=== PATIENT | female | born 1980 | race Caucasian/White ===

== ENCOUNTER 2023-12-19 20:56 | Emergency (ER) | payer OTHER, MEDICARE, SELFPAY ==
[2023-12-19 21:22] VITALS: BP 132/84; PULSE 99; RESP 20; TEMP 37.9; O2SAT 98; BMI 33.3
--- NOTE | 2023-12-19 21:42 | CT_ITS ---
Patient: LANETTE ROJO Facility:?[facility] Patient ID:?[id number] Site Patient ID:?[id number]. Site :?[id number] Study:?CT-Abdomen/Pelvis w/ 95cc [id number]/2024 10:24:25 PM Ordering Physician:Ankur Hogan Final Report: Indication: Right lower quadrant pain, fever Technique: CT through the abdomen and pelvis following 95 mL Isovue 370 IV contrast Comparison: None Findings: Lower chest: No acute abnormality appreciated. Hepatobiliary: No significant parenchymal abnormality is appreciated. Status post cholecystectomy. Spleen: Unremarkable. Pancreas: No acute abnormality appreciated. Adrenal glands: No acute abnormality appreciated. Kidneys: Right perinephric stranding, delayed nephrogram, mild enlargement of the kidney comment focal hypoenhancement of the midpole. No hydronephrosis. No visualized stones. Bowel: No obstruction. No focal perienteric or pericolonic stranding is appreciated. The appendix is visualized and appears unremarkable. Vascular: No acute abnormality appreciated. Lymph nodes: No gross lymphadenopathy. Peritoneum: No free air. No free fluid. : No acute abnormality appreciated. Soft tissues: No acute abnormality appreciated. Bones: No acute fracture. No lytic or blastic lesion. Impression: Findings are suspicious for right-sided pyelonephritis. Please note that all CT scans at this facility use dose modulation, iterative reconstruction, and/or weight-based dosing when appropriate to reduce radiation dose to as low as reasonably achievable. Dictated by Hector Rahman MD @ 12/19/2023 10:28:18 PM Signed by:?Hector Rahman MD @12/19/2023 10:28:18 PM (Electronic Signature)
[2023-12-19 22:00] LABS: Basophils Percent Auto 0.1 % (0.0-3.0); Eosinophils Percent Auto 1.4 % (0.0-7.0); Hematocrit 40.4 % (33.0-51.0); Hemoglobin* 13.3 gm/dL (12.0-16.0); Immature Granulocytes Pct Auto 0.3 %; Lymphocytes Percent Auto 22.4 % (20-44); Mean Corpuscular HGB Conc 33 gm/dL (32-36); Mean Corpuscular Hemoglobin 29 pg (26-34); Mean Corpuscular Volume 89 fL (80-100); Monocytes Percent Auto 8.4 % (0.0-11.0); Neutrophils Percent Auto 67.4 % (42.0-72.0); Platelet Count* 291 K/uL (140-440); RDW Coefficient of Variation % 13.1 % (11.5-15.5); Red Blood Count 4.53 m/uL (4.00-5.20); White Blood Count* 11.76 K/uL (4.50-11.00)
[2023-12-19 22:05] VITALS: TEMP 37.9
[2023-12-19 22:05] LABS: Slide Review Reflex No
[2023-12-19] MEDS: KETOROLAC 15 MG/ML inj IVP (22:05)
[2023-12-19 22:24] LABS: Albumin* 4.3 g/dL (3.3-5.0); Chloride* 107 mmol/L (96-114)
[2023-12-19 22:25] LABS: Potassium* 4.1 mmol/L (3.6-5.1); Sodium* 136 mmol/L (135-149)
[2023-12-19 22:25] LABS: Appearance Urine Clear (Clear); Bilirubin Urine Negative (Negative); Blood Urine Negative (Negative); Color Urine Yellow (Yellow); Glucose Urine Negative (Negative); Ketones Urine Negative (Negative)
[2023-12-19 22:26] LABS: Bacteria Urine Moderate; Leukocyte Esterase Urine Negative (Negative); Nitrite Urine Negative (Negative); Protein Urine Negative (Negative); RBC Urine 0-2 (0-2); Urobilinogen Urine 0.2 (0.2-1.0)
[2023-12-19 22:27] LABS: Creatinine* 0.6 mg/dL (0.5-1.5); Est. Creatinine Clearance* 106.55; Estimated Glomerular Filt Rate 116 ml/min
[2023-12-19 22:28] LABS: Alanine Aminotransferase* 69 U/L (4-35); Alkaline Phosphatase* 56 U/L (40-150); Anion Gap 5 mEq/L (7-15); Aspartate Amino Transferase* 55 U/L (12-35); Bilirubin Direct* 0.2 mg/dL (0.0-0.5); Bilirubin Total* 0.2 mg/dL (0.1-1.5); Blood Urea Nitrogen* 13 mg/dL (5-24); Calcium* 9.1 mg/dL (8.4-10.6); Carbon Dioxide* 24 mmol/L (20-32); Glucose* 95 mg/dL (60-115); Lipase* 70 U/L (23-300); Total Protein* 7.3 g/dL (6.0-8.3)
[2023-12-19 22:31] LABS: C Reactive Protein* 1.8 mg/dL (0.5-1.0)
--- NOTE | 2023-12-19 22:34 | ED_ITS ---
HPI - General Adult General Date Seen: 12/19/23 Chief complaint: Abdominal Pain Stated complaint: pain in abdomen Time Seen by Provider: 12/19/23 21:35 Source: patient Mode of arrival: ambulatory Limitations: no limitations History of Present Illness HPI narrative: Patient is a 43-year-old woman with a history of cholecystectomy, otherwise says her general health is good. She has been having some right mid lateral abdominal/flank pain she says on and off for about a month. The past several days it has been more constant. She has times where it is more achy and other times where she feels like there is a sharp stabbing pain which is reminiscent of when she had gallstones. She has not had nausea vomiting. Appetite has been normal. She is worried about possible appendicitis. She has no history of ovarian cyst or other pathology, denies pelvic pain. She has not had any hematuria or dysuria. Does have a fever here, has not noted fever at home. Denies respiratory symptoms, shortness of breath, cough. She has a Nexplanon, gets periods which are generally pretty light, no suspicion of . She does not smoke, denies significant alcohol use. Does not go to the doctor much. Related Data Home Medications Medication Instructions Recorded Confirmed gabapentin PRN 12/19/23 Allergies Allergy/AdvReac Type Severity Reaction Status Date / Time morphine Allergy Mild NV Verified 12/19/23 21:31 Penicillins Allergy Mild rash Verified 12/19/23 21:31 tobramycin Allergy Mild hives Verified 12/19/23 21:31 Review of Systems Status of ROS: Reports: 6 or more systems reviewed and unremarkable except as noted in History and below [facility] Medical History Ganglion cyst ?M67.40 - Ganglion, unspecified site (ICD-10) Surgical History History of wisdom tooth extraction ?K08.409 - Partial loss of teeth, unspecified cause, unspecified class (ICD- 10) History of laparoscopic cholecystectomy ?Z90.49 - Acquired absence of other specified parts of digestive tract (ICD- 10) History of section ?Z98.891 - History of uterine scar from previous surgery (ICD-10) History of breast biopsy ?Z98.890 - Other specified postprocedural states (ICD-10) Social History Smoking Status: Never smoker Second hand tobacco smoke exposure: No How often do you have a drink containing alcohol: never AUDIT-C Alcohol total score: 0 Non-prescribed substance use: denies use Exam Narrative: Exam Narrative: Vital signs as noted above. In general, an alert, well-appearing patient. Head: Normocephalic, atraumatic. Eyes: Pupils are equal reactive. Extraocular movements are full. Conjunctivae are normal. ENT: Mucous membranes are moist. Throat is normal. Neck: Supple without lymphadenopathy. Heart: Regular rate and rhythm. No murmur or rub. Lungs: Clear bilaterally. No increased work of breathing, crackles or wheezes. Abdomen: Soft and nondistended. She has a little right mid abdominal tenderness, not really in McBurney's point. Negative Maynard's. Positive CVA tenderness on the right. No rebound guarding rigidity in the abdomen. Extremities: Well perfused. No edema. No calf tenderness. Pulses intact. Neurologic: Patient is alert and oriented to person and place. Speech is fluent. Face is symmetric. Moves all extremities equally. Affect: Normal. Skin: Warm and dry. Well perfused. Const: Vital Signs, click to edit/add: Vital Signs - 24 hr 12/19/23 21:22 12/19/23 22:05 Temperature 100.2 F H 100.2 F H Pulse Rate [Pulse Oximeter] 99 Respiratory Rate 20 Blood Pressure [Ri ght Upper Arm] 132/84 Pulse Oximetry 98 Oxygen Delivery Me thod Room Air Documenting provider has reviewed patient's vital signs: yes Course Course ED Course: Patient is a generally healthy 43-year-old who presents with what she describes as intermittent pain in her right abdomen and flank for about a month, but more persistent over the past few days. Low-grade fever here. I ordered some blood work, white count was mildly elevated at 12,000 thousand, no significant left shift. Hemoglobin normal. Metabolic panel normal, lactate 1, LFTs notable for mild elevations in her transaminases a 55 and 69. Bilirubin and alk-phos are normal. CRP mildly elevated at 1.8 and ultimately did elect to go on to CT scan of the abdomen to evaluate for possible appendicitis, pyelonephritis, pancreatitis, diverticulitis, or other acute process. Lipase was ultimately normal at 70. Final radiology read as follows:Findings: Lower chest: No acute abnormality appreciated. Hepatobiliary: No significant parenchymal abnormality is appreciated. Status post cholecystectomy. Spleen: Unremarkable. Pancreas: No acute abnormality appreciated. Adrenal glands: No acute abnormality appreciated. Kidneys: Right perinephric stranding, delayed nephrogram, mild enlargement of the kidney comment focal hypoenhancement of the midpole. No hydronephrosis. No visualized stones. Bowel: No obstruction. No focal perienteric or pericolonic stranding is appreciated. The appendix is visualized and appears unremarkable. Vascular: No acute abnormality appreciated. Lymph nodes: No gross lymphadenopathy. Peritoneum: No free air. No free fluid. : No acute abnormality appreciated. Soft tissues: No acute abnormality appreciated. Bones: No acute fracture. No lytic or blastic lesion. Impression: Findings are suspicious for right-sided pyelonephritis. Urinalysis was not markedly abnormal, 0-2 red cells and 2-5 white cells, moderate bacteria with no squamous cells. Given CT findings and CVA tenderness as well as low-grade fever however I do think it is reasonable to give her a dose of IV Rocephin here, will send her home on Keflex pending urine culture results. She is nontoxic in appearance, I do not see markers suggesting need for admission. Vital Signs Vital signs: Initial Vital Signs Temperature 100.2 F H 12/19/23 21:22 Temperature Source Temporal Artery Scan 12/19/23 21:22 Pulse Rate 99 12/19/23 21:22 Respiratory Rate 20 12/19/23 21:22 Blood Pressure 132/84 12/19/23 21:22 Blood Pressure Mean 100 12/19/23 21:22 Blood Pressure Position Sitting 12/19/23 21:22 Pulse Oximetry 98 12/19/23 21:22 Oxygen Delivery Method Room Air 12/19/23 21:22 Vital Signs Temperature 100.2 F H 12/19/23 21:22 Pulse Rate 99 12/19/23 21:22 Respiratory Rate 20 12/19/23 21:22 Blood Pressure 132/84 12/19/23 21:22 Pulse Oximetry 98 12/19/23 21:22 Oxygen Delivery Method Room Air 12/19/23 21:22 Temperature 100.2 F H 12/19/23 22:05 Pulse Rate 99 12/19/23 21:22 Respiratory Rate 20 12/19/23 21:22 Blood Pressure 132/84 12/19/23 21:22 Pulse Oximetry 98 12/19/23 21:22 Oxygen Delivery Method Room Air 12/19/23 21:22 Medications Administered Medications: Generic Name Dose Route Start Last Admin Trade Name Freq PRN Reason Stop Dose Admin Ceftriaxone Sodium 1 gm/ 100 mls @ 200 mls/hr 12/19/23 22:40 12/19/23 22:48 Sodium Chloride IVPB 12/19/23 22:41 200 mls/hr ONCE ONE Administration Discontinued Medications Generic Name Dose Route Start Last Admin Trade Name Freq PRN Reason Stop Dose Admin Ketorolac Tromethamine 15 mg 12/19/23 21:42 12/19/23 22:05 Ketorolac 15 Mg/Ml Inj IVP 12/19/23 21:43 15 mg ONCE ONE Administration Medical Decision Making Lab Data Labs: Lab Results 12/19/23 12/19/23 12/19/23 Range/Units 21:35 21:50 22:11 WBC 11.76 H (4.50-11.00) K/uL RBC 4.53 (4.00-5.20) m/uL Hgb 13.3 (12.0-16.0) gm/dL Hct 40.4 (33.0-51.0) % MCV 89 (80-100) fL MCH 29 (26-34) pg MCHC 33 (32-36) gm/dL RDW Coeff of Desiree 13.1 (11.5-15.5) % Plt Count 291 (140-440) K/uL Neut % (Auto) 67.4 (42.0-72.0) % Lymph % (Auto) 22.4 (20-44) % Caldwell % (Auto) 8.4 (0.0-11.0) % Eos % (Auto) 1.4 (0.0-7.0) % Baso % (Auto) 0.1 (0.0-3.0) % Neut # (Auto) 7.90 H (1.7-7.0) K/uL Lymph # (Auto) 2.60 (0.90-2.90) K/uL Caldwell # (Auto) 1.00 H (0.00-0.90) K/UL Eos # (Auto) 0.20 (0.00-0.50) K/uL Baso # (Auto) 0.00 (0.00-0.30) K/uL Abs Immat Gran (auto) 0.00 (0.00-0.30) K/uL Imm/Tot Granulo (auto) 0.3 % Sodium 136 (135-149) mmol/L Potassium 4.1 (3.6-5.1) mmol/L Chloride 107 (96-114) mmol/L Carbon Dioxide 24 (20-32) mmol/L Anion Gap 5 L (7-15) mEq/L BUN 13 (5-24) mg/dL Creatinine 0.6 (0.5-1.5) mg/dL Estimated Creat Clear 106.55 Estimated GFR 116 ml/min Glucose 95 (60-115) mg/dL Lactate 1.0 (0.5-1.9) mmol/L Calcium 9.1 (8.4-10.6) mg/dL Total Bilirubin 0.2 (0.1-1.5) mg/dL Direct Bilirubin 0.2 (0.0-0.5) mg/dL AST 55 H (12-35) U/L ALT 69 H (4-35) U/L Alkaline Phosphatase 56 (40-150) U/L C-Reactive Protein 1.8 H (0.5-1.0) mg/dL Total Protein 7.3 (6.0-8.3) g/dL Albumin 4.3 (3.3-5.0) g/dL Lipase 70 (23-300) U/L HCG, Qual Negative (Negative) Urine Color Cancelled Yellow Urine Appearance Cancelled Clear Urine pH Cancelled 7.0 Ur Specific [place] Cancelled 1.020 Urine Protein Cancelled Negative Urine Glucose (UA) Cancelled Negative Urine Ketones Cancelled Negative Urine Blood Cancelled Negative Urine Nitrite Cancelled Negative Urine Bilirubin Cancelled Negative Urine Urobilinogen Cancelled 0.2 Ur Leukocyte Esterase Cancelled Negative Urine RBC 0-2 (0-2) Urine WBC 2-5 (0-5) Ur Squamous Epith Cells None (None-Few) Urine Bacteria Moderate A (None) Discharge Plan Discharge Clinical Impression: Pyelonephritis of right kidney Patient Disposition: Home, Self-Care Condition: Stable Instructions: Kidney Infection (ED) Additional Instructions: Antibiotic as prescribed. Return any time for high fevers, shaking chills, vomiting, severe uncontrolled pain. See primary care if not feeling improved over the next several Prescriptions: No Action gabapentin PRN Patient Comments: unsure of the dose Follow Up/Referrals: Provider,Not a Local [Primary Care Provider] - Stand Alone Forms: [employer] Info Instructions
[2023-12-19 22:39] LABS: HCG Qualitative Serum* Negative (Negative)
[2023-12-19] MEDS: cefTRIAXone 1 GM in 0.9 % SODIUM CHLORIDE Mini-bag 100 ML IVPB (22:48)
[2023-12-19 23:28] VITALS: TEMP 37.9
[2023-12-19 23:29] VITALS: BP 124/74; PULSE 85; RESP 20; TEMP 37.3; O2SAT 98
[2023-12-19 23:31] VITALS: BP 124/74; PULSE 85; RESP 20; TEMP 37.3
== END 2023-12-19 23:31 | disposition home or self-care (01) ==
PROVIDERS: Emergency Provider Emergency Medicine
DX: N10 Acute pyelonephritis (principal)
CPT/HCPCS: 36415; 74177; 80048; 80076; 81001; 81003; 83605; 83690; 84703; 85025; 86140; 87086; 87186; 96365; 96375; 99284; J0696; J1885; Q9967

== ENCOUNTER 2025-04-27 22:02 | Emergency (ER) | payer MEDICAID, SELFPAY ==
[2025-04-27 22:11] VITALS: BP 122/82; PULSE 114; RESP 20; TEMP 36.2; O2SAT 100
[2025-04-27 22:45] LABS: Ur HCG Qualitative* Negative (Negative)
--- NOTE | 2025-04-27 23:02 | ED.GENADULT ---
HPI - General Adult General Date Seen: 04/27/25 Chief complaint: Extremity Pain/Injury, Upper Stated complaint: fall, r arm, left knee pain Time Seen by Provider: 04/27/25 22:51 History of Present Illness HPI narrative: 45 yo F presenting to the ER today for evaluation of injuries after a fall. She slipped on her wet kitchen floor at about 5:00 p.m. this evening. She injured her left knee and her right elbow. She did not hit her head. No loss of consciousness. She also happens to be 4 days late from her predicted menstrual cycle and wants a test. Because of pain she did take cyclobenzaprine and alcoholic drink prior to arrival. Past surgical history includes cholecystectomy, section. She was diagnosed with pyelonephritis in December 2023. She was not doing dishes in her kitchen this evening. She was barefoot and working on the laminate floor. She had inadvertently got on the floor white and then slipped on the wet floor and landed. It sounds like she did scrape her left knee but did not have any significant injury there. She has been able to flex and extend her knee without difficulty and has been walking on it without too much pain. Her primary injuries that she landed directly on her right elbow and she has been having pain on the right elbow ever since the fall. She has not been able to fully extend her elbow because of pain nor she been able to fully flex. The pain is more on the medial aspect of the elbow than lateral. No pain more proximally in the humerus or shoulder. No pain distally in the forearm, wrist, or hand. No numbness or tingling in her hand. She did not hit her head. No neck pain. No chest or back injury. Her right elbow is hurting lot at home so she did have 1 alcoholic beverage and took 1 Flexeril to dull the pain. She says she does not normally drink alcohol. Related Data Home Medications ?Medication ?Instructions ?Recorded ?Confirmed gabapentin 600 mg PO BID PRN 12/19/23 04/27/25 gabapentin 600 mg tablet 600 mg PO BID PRN pain 04/27/25 04/27/25 Previous Rx's ?Medication ?Instructions ?Recorded oxycodone 5 mg tablet 5 mg PO Q6H PRN pain #10 tabs 04/28/25 Allergies Allergy/AdvReac Type Severity Reaction Status Date / Time amoxicillin Allergy Intermediate Rash Verified 04/24/24 12:43 morphine Allergy Mild NV Verified 12/19/23 21:31 Penicillins Allergy Mild rash Verified 12/19/23 21:31 tobramycin Allergy Mild hives Verified 12/19/23 21:31 [facility] Medical History Ganglion cyst ?M67.40 - Ganglion, unspecified site (ICD-10) Surgical History History of wisdom tooth extraction ?K08.409 - Partial loss of teeth, unspecified cause, unspecified class (ICD-10) History of laparoscopic cholecystectomy ?Z90.49 - Acquired absence of other specified parts of digestive tract (ICD-10) History of section ?Z98.891 - History of uterine scar from previous surgery (ICD-10) History of breast biopsy ?Z98.890 - Other specified postprocedural states (ICD-10) Social History Smoking Status: Never smoker Second hand tobacco smoke exposure: No How often do you have a drink containing alcohol: never AUDIT-C Alcohol total score: 0 Non-prescribed substance use: denies use Exam Narrative: Exam Narrative: Constitutional: Appears well-developed and well-nourished. Alert. Conversant. Non toxic. HENT: Head: Atraumatic. No depressed skull fracture, Raccoon Eyes, Diane's sign. Face normal Nose: Nose normal. Mouth/Throat: Oral mucosa is clear and moist. no trismus. Pharynx normal. Tonsils symmetric. No tonsillar enlargement, erythema, or exudate. Eyes: Conjunctivae normal. EOM normal. Pupils equal, round, and reactive to light. No scleral icterus. Neck: Normal range of motion. Neck supple. No tracheal deviation present. Cardiovascular: Normal rate, regular rhythm. No gallop. No friction rub. No murmur heard. Symmetric radial artery pulses Pulmonary/Chest: Effort normal. No stridor. No respiratory distress. No wheezes. No rales. No rhonchi . No ribcage tenderness. Abdominal: Soft. No distension. No mass. No tenderness. No rebound. No guarding. Musculoskeletal: RUE: Clavicle is nontender. Proximal humerus and shoulder nontender. Humeral shaft nontender. Biceps and triceps nontender. Elbow coma normal inspection. Range of motion is limited from about 45 past 90? of flexion and she is able to extend until about 45 past 90? of extension. She is able to pronate and supinate her forearm without pain. She is tender over the medial epicondyle and the very distal end of the humerus. She is not tender over the lateral epicondyle. No tenderness over the olecranon. Radial head nontender. Forearm, radius, ulna shaft are nontender. Wrist and distal radius/are nontender. Normal flexion and extension of the wrist. Thumb, hand, fingers are nontender. Intact median, radial, ulnar nerve sensory function. Normal distal cap refill. LUE: Normal range of motion. No tenderness. No deformity RLE: Normal range of motion. No edema. No tenderness. No deformity LLE: Normal range of motion. No edema. No deformity superficial abrasion on left anterior knee but full flexion extension. Normal weight-bearing. Patient does not think her knee is broken. Neurological: Alert and oriented to person, place, and time. Normal strength. CN II-VII intact. No sensory deficit. GCS eye subscore is 4. GCS verbal subscore is 5. GCS motor subscore is 6. Normal coordination Skin: Skin is warm and dry. No rash noted. No pallor. Normal capillary refill. Psychiatric: Normal mood. Normal affect. Const: Vital Signs, click to edit/add: Vital Signs - 24 hr 04/27/25 22:11 04/28/25 01:00 04/28/25 01:01 Temperature 97.2 F L 98.0 F Pulse Rate [Left P ulse Oximeter] 114 H 99 Respiratory Rate 20 20 Blood Pressure [Le ft Upper Arm] 122/82 124/78 Pulse Oximetry 100 100 100 Oxygen Delivery Me thod Room Air Room Air Course Vital Signs Vital signs: Initial Vital Signs Temperature 97.2 F L 04/27/25 22:11 Temperature Source Temporal Artery Scan 04/27/25 22:11 Pulse Rate 114 H 04/27/25 22:11 Pulse Rhythm Regular 04/27/25 22:11 Respiratory Rate 20 04/27/25 22:11 Blood Pressure 122/82 04/27/25 22:11 Blood Pressure Mean 95 07/23/25 22:11 Blood Pressure Position Sitting 04/27/25 22:11 Pulse Oximetry 100 04/27/25 22:11 Oxygen Delivery Method Room Air 04/27/25 22:11 Vital Signs Temperature 97.2 F L 04/27/25 22:11 Pulse Rate 114 H 04/27/25 22:11 Respiratory Rate 20 04/27/25 22:11 Blood Pressure 122/82 04/27/25 22:11 Pulse Oximetry 100 04/27/25 22:11 Oxygen Delivery Method Room Air 04/27/25 22:11 Temperature 98.0 F 04/28/25 01:01 Pulse Rate 99 04/28/25 01:01 Respiratory Rate 20 04/28/25 01:01 Blood Pressure 124/78 04/28/25 01:01 Pulse Oximetry 100 04/28/25 01:01 Oxygen Delivery Method Room Air 04/28/25 01:01 Medications Administered Medications: Discontinued Medications Generic Name Dose Route Start Last Admin Trade Name Freq PRN Reason Stop Dose Admin Oxycodone HCl 5 mg 04/27/25 23:09 04/27/25 23:31 Oxycodone 5 Mg Tablet PO 04/27/25 23:10 5 mg ONCE ONE Administration Medical Decision Making MDM Narrative Medical decision making narrative: Pleasant 45-year-old female presenting to the ER today with concerns for injuries after she had a mechanical slip and fall on her wet kitchen floor this evening. She did scrape her left knee but does not really feel that 6 and significant injury. Her main site of injury is in her right elbow. X-rays do show evidence for an effusion and potentially a proximal ulnar fracture, per radiology but I do not see it. Possibly a nondisplaced fracture. Will place into a sling. Recommend close outpatient orthopedic follow-up within 3-5 days. She did not hit her head injured her neck. She is not having any chest or back pain. No abdominal pain. No evidence for hip or pelvic injury. Incidentally she is 4 days late for her menstrual cycle and request a test. test is negative. Lab Data Labs: Lab Results 04/27/25 Range/Units 22:40 Urine HCG, Qual Negative (Negative) Imaging Data XR R elbow: Attestation: I have reviewed the pertinent imaging results. My impression: pos joint effusion. no definite fracture Radiologist's impression: Impression: Elbow joint effusion with possible slightly displaced fracture at the sublime tubercle of the proximal ulna. Recommend correlation with site for focal tenderness. Discharge Plan Discharge Clinical Impression: Elbow fracture, right Patient Disposition: Home, Self-Care Condition: Stable Instructions: Elbow Fracture (DC), How to Use a Sling (ED) Additional Instructions: As we discussed, your elbow x-rays are suspicious that you may have a hairline fracture through the ulna bone in your right elbow. Please wear the sling whenever you are up and around for the next couple of days. Please follow-up with the [facility] within 3-5 days. call [phone] to arrange an ER follow-up visit. To manage her pain you can use Tylenol or ibuprofen if needed. Use the prescription pain killer (oxycodone) only if needed for severe pain. Be careful because oxycodone can cause dizziness, drowsiness, constipation, and can be addictive. Do not drive for 6 hours after taking oxycodone. If you have worsening or severe pain in your elbow, numbness or pallor in your arm, or any other problems, please come back to the ER right away. Prescriptions: New oxycodone 5 mg tablet 5 mg PO Q6H PRN (Reason: pain) Qty: 10 0RF No Action gabapentin 600 mg tablet 600 mg PO BID PRN (Reason: pain) gabapentin 600 mg PO BID PRN Patient Comments: unsure of the dose Follow Up/Referrals: Provider,Not a Local [Primary Care Provider, Family Practice] Stand Alone Forms: [employer] Info Instructions
--- NOTE | 2025-04-27 23:09 | CRLHL7_ITS ---
For Patients: As a result of the Century Cures Act, medical imaging exams and procedure reports are released immediately into your electronic medical record. You may view this report before your referring provider. If you have questions, please contact your health care provider. Indication: Fall, right elbow pain. Technique: Right elbow 4 views. Comparison: None. Findings: Bones: Possible subtle slightly displaced fracture at the sublime tubercle of the proximal ulna. The radial head and neck are intact. No aggressive osseous lesion. Joint spaces: Positive posterior fat pad sign. The joint spaces are otherwise preserved. Soft tissues: Unremarkable. Impression: Elbow joint effusion with possible slightly displaced fracture at the sublime tubercle of the proximal ulna. Recommend correlation with site for focal tenderness. Dictated by Ulises Pugh MD @ 04/28/2025 12:22:04 AM (Electronically Signed)
--- OUTSIDE RECORDS SUMMARY | 2025-04-27 23:29 | XMS_ITS | Clinical Summary ---
Author Organization [facility] Address [address] [place] [address] Care Team Providers Care [employer] Team Member Name Role Phone Reji Rich MD Primary Care Provider [phone] Source Comments You are receiving this document as you are listed as the primary care provider,follow-up provider, or the patient has been referred to you for consultation.This is in compliance with the Medicare and[facility] EHR Incentive [facility],which states Providers who transition their patient to another setting of careor provider of care or refers their patient to another provider of care shouldprovide summary care record for each transition of care or referral. [employer] [facility] [employer] Allergies Active Allergy Reactions Criticality Noted Date Comments Amoxicillin-Pot Clavulanate 11/30/2002 PN: LW Reaction: itching Morphine Nausea And Vomiting 03/18/2019 Medications UNKNOWN MEDICATION Indications : PN: 08/04/2008 Active [id number] 0.18/0.215/0.25 MG-25 MCG tablet TK 1 T PO D 0 03/03/2019 Active fluconazole (DIFLUCAN) 150 MG tabletIndication s:Yeast vaginitis Take one tablet by mouth now. 1 Tablet 05/11/2019 Active Active Problems Problem Noted Date Diagnosed Date Obesity 04/09/2005 Overview (05/09/2016): LW Onset: [id number] Resolved Problems Problem Noted Date Diagnosed Date Resolved Date Dysfunction of eustachian tube 04/09/2005 06/09/2005 Overview (05/28/2017): LW Onset: [id number] ; Eustachian Tube Dysfunction Encounters Date Type Department Care Team Description 02/27/2025 12:20 PM CDT Office Visit [facility] [address] [address] [place] [address] Coy Chatterjee PA-C Right foot pain (Primary Dx) 02/27/2025 11:55 AM CDT Ancillary Procedure Radiology at [facility] [address] [place] [address] Coy Chatterjee PA-C Right foot pain 02/27/2025 11:50 AM CDT Ancillary Procedure Radiology at [facility] [address] [place] [address] Coy Chatterjee PA-C Right foot pain from Last 3 Months Immunizations Immunization Administration Dates Next Due HepB Adult (Engerix-B, 20+ y rs, 3 dose series) 11/22/2005,05/13/2005,04/09/2005 Influenza, Unspecified Formulation 08/28/1998 TB Skin Test (PPD) 04/09/2005 Td 09/08/2001 Social History Tobacco Use Types Packs/Day Years Used Date Smoking Tobacco: Every Day Comments:Smoking History Pac ks/day: Alcohol Use Standard Drinks/Week Comments Yes 0 (1 standard drink = 0.6 oz pur e alcohol) socially Comments No Sex and Gender Information Value Date Recorded Sex Assigned at Not on file Legal Sex Female 5:48 AM CDT Gender Identity Not on file Sexual Orientation Not on file Last Filed Vital Signs Vital Sign Reading Time Taken Comments Blood Pressure 104/77 02/27/2025 11:33 AM CDT Pulse 89 02/27/2025 11:33 AM CDT Temperature 37 C (98.6 F) 02/27/2025 11:33 AM CDT Respiratory Rate 18 02/27/2025 11:33 AM CDT Oxygen Saturation 99% 02/27/2025 11:33 AM CDT Inhaled Oxygen Concentration - - Weight 93.9 kg (207 lb) 03/18/2019 9:02 AM CDT Height 165.1 cm (5' 5) 09/10/2006 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 C : 165.1cm Body Mass Index - - Plan of Treatment Health Maintenance Due Date Last Done Comments Hep C Screening (Preventive Services) 1982 Mammogram 1982 Adult Preventive Visit 01/18/2000 Pneumococcal Vaccine (1 of 2 - PCV) 2001 Cervical Cancer Screening Due 05/06/2006 05/05/2006, 05/03/2005, 11/17/2003, Additional history exists DTaP/Tdap/Td Vaccine (3 - Tdap) 09/13/2023 09/13/2013, 07/06/2013, 09/08/2001 COVID-19 Vaccine (3 - season) 2024 06/10/2021, 05/19/2021 Influenza Vaccine (#1) 2025 07/23/2018, 1997 Zoster/Shingles Vaccine (1 of 2) 01/18/2032 HIV Screening (Preventive Services) Completed 08/07/1998 HepB Vaccine Completed 11/22/2005, 05/2005, 04/09/2005 HPV Vaccine Aged Out No longer eligi ble based on patient's age to complete this topic HepA Vaccine Aged Out No longer eligi ble based on patient's age to complete this topic Hib Vaccine Aged Out No longer eligi ble based on patient's age to complete this topic IPV (Polio) Vaccine Aged Out No longe r eligible based on patient's age to complete this topic MCV4 Vaccine Aged Out No longer eligi ble based on patient's age to complete this topic Meningococcal B Vaccine Aged Out No l onger eligible based on patient's age to complete this topic Procedures Procedure Name Priority Date/Time Associated Diagnosis Comments XR FOOT RT AP/MO/LAT STAT 02/27/2025 12:03 PM CDT Right foot pain XR TOE RT 3RD MIDDLE 3 VIEWS STAT 02/27/2025 12:03 PM CDT Right foot pain ANATOMICAL PATH LIQUID BASED Routine 05/05/2006 11:55 AM CDT HIV ANTIBODY Routine 08/07/1998 9:56 AM DRYING 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 IMPRESSION: Normal joint spaces and alignment. Tiny dorsal surface calcaneal spur. No fracture. Procedure Note Janes Chavez MD - 02/27/2025 EXAM: XR FOOT RT AP/MO/LAT, XR TOE RT 3RD MIDDLE 3 VIEWS LOCATION: [facility] DATE: 02/27/2025 INDICATION: Trauma to right foot, Pain in right foot, PAIN COMPARISON: None. IMPRESSION: Normal joint spaces and alignment. Tiny dorsal surfacecalcaneal spur. No fracture. Coy Chatterjee PA-C RAD GD Final Resul t * XR Foot Rt AP/MO/Lat (02/27/2025 12:03 PM CDT) Anatomical Region Laterality Modality Lower Extremity, Foot, Foot & Ankle Digital Radiography 02/27/2025 12:0 3 PM CDT Narrative 02/27/2025 12:15 PM CDT EXAM: XR FOOT RT AP/MO/LAT, XR TOE RT 3RD MIDDLE 3 VIEWS LOCATION: [facility] DATE: 02/27/2025 INDICATION: Trauma to right foot, Pain in right foot, PAIN COMPARISON: None. IMPRESSION: Normal joint spaces and alignment. Tiny dorsal surface calcaneal spur. No fracture. Procedure Note Janes Chavez MD - 02/27/2025 EXAM: XR FOOT RT AP/MO/LAT, XR TOE RT 3RD MIDDLE 3 VIEWS LOCATION: [facility] DATE: 02/27/2025 INDICATION: Trauma to right foot, Pain in right foot, PAIN COMPARISON: None. IMPRESSION: Normal joint spaces and alignment. Tiny dorsal surfacecalcaneal spur. No fracture. Coy Chatterjee PA-C RAD GD Final Resul t * Pap Smear (05/05/2006 11:55 AM CDT) PAP Smear Liquid Based SEE TEXT No normal range HP CONVERSION Comment: Patient: LANETTE DE LEON CERVICAL CYTOLOGY REPORT Pathology # [id number] Date Obtained: Date Received: CYTOLOGIC IMPRESSION: Negative for intraepithelial lesion or malignancy. Verified 05/15/06 by: SL (electronic signature) ADDITIONAL DATA LMP: CLINICAL HIST LIQUID BASED PAP CERVICAL SPECIMEN ADEQUACY: Satisfactory. ENDOCERVICAL CELLS: Present. 05/05/2006 11:5 5 AM CDT Beni Trinh MD LAB_1 Final Result HP CONVERSION * HIV Antibody (08/07/1998 9:56 AM DRYING TUNNEL OPERATOR) HIV 1/HIV 2 Non Reac Non Reac IU/ML HP CONVERSION 08/07/1998 9:56 AM DRYING TUNNEL OPERATOR Ralph Umana MD LAB_1 Final Result HP CONVERSION from Last 3 Months or Most Recently Relevant to Health Maintenance Insurance [employer] [facility] Care Teams [employer] Team Member Relationship Specialty [place] [id number] [place] [id number] PCP - General 01/06/11
[2025-04-28 01:00] VITALS: O2SAT 100
[2025-04-28 01:01] VITALS: BP 124/78; PULSE 99; RESP 20; TEMP 36.7; O2SAT 100
[2025-04-28 01:07] VITALS: BP 124/78; PULSE 99; RESP 20; TEMP 36.7
== END 2025-04-28 01:07 | disposition home or self-care (01) ==
PROVIDERS: Emergency Provider Emergency Medicine
DX: S52.026A Nondisplaced fracture of olecranon process without intraarticular extension of unspecified ulna, initial encounter for closed fracture (principal); S80.212A Abrasion, left knee, initial encounter; W01.0XXA Fall on same level from slipping, tripping and stumbling without subsequent striking against object, initial encounter
CPT/HCPCS: 73080; 81025; 94761; 99282; 99284; A9270